=== PATIENT | female | born 1950 | race Caucasian/White ===

== ENCOUNTER 2016-09-09 17:00 | Inpatient (IN) | payer MEDICARE, OTHER ==
[~2016-09-09] VITALS: Ht 167.6 cm; Wt 75.8 kg
--- NOTE | ~2016-09-09 | OR ---
PATIENT'S NAME: TAYLOR MADRID [facility] AGE: 65 Y [address] ROOM: [place] [address] LOCATION: [facility] ADMIT DATE: 10/01/2016 OR/Procedure Report DISCHARGE DATE: FAMILY PHYSICIAN: Charline Fox ATTENDING PHYSICIAN: DEL DE SOUZA SURGEON: Del De Souza MD GREY STOCK RECORDER: 1. Miguel Mccarthy PA-C. 2. Rakesh Cao CST/ARETHA. DATE OF PROCEDURE: 10/01/2016 PREOPERATIVE DIAGNOSIS: Degenerative joint disease, left knee. POSTOPERATIVE DIAGNOSES: 1. Degenerative joint disease, left knee. 2. Chronic left anterior cruciate ligament insufficiency. OPERATION: Left total knee arthroplasty with computer navigation. ANESTHESIA: Spinal anesthesia plus adductor canal block plus periarticular local anesthesia (ropivacaine with epinephrine and Toradol). ESTIMATED BLOOD LOSS: Less than 10 mL. DRAIN: None. SPECIMEN: None. COMPLICATIONS: None. IMPLANT SYSTEM: [employer] Triathlon: 1. Size 4 left posterior stabilized femoral component. 2. Size 3 universal modular tibial baseplate. 3. 11 mm, posterior stabilized, size 3 x3 polyethylene insert. 4. 29 mm oval x3 patella component. INDICATIONS FOR SURGERY: Taylor Madrid is a 65-year-old female who presents with advanced left knee degenerative joint disease and associated severely compromised activities of daily living. The patient has decided to proceed with knee replacement after having been thoroughly counseled regarding the associated risks, benefits, and limitations. We have specifically reviewed the risks and implications of infection, deep venous thrombosis, pulmonary embolism, mortality, neurovascular complications, blood transfusion (and associated potential for disease transmission or transfusion reaction), stiffness, instability, mechanical deterioration of the components (due to wear and or loosening), and the potential need for revision. We have also PATIENT'S NAME: TAYLOR MADRID [facility] AGE: 65 Y [address] ROOM: [place] [address] LOCATION: [facility] ADMIT DATE: 10/01/2016 OR/Procedure Report DISCHARGE DATE: FAMILY PHYSICIAN: Charline Fox ATTENDING PHYSICIAN: DEL DE SOUZA emphasized the importance of active involvement and compliance with post- operative physical therapy as a means of optimizing range of motion and functional recovery. Informed consent has been granted. DESCRIPTION OF PROCEDURE: The patient was positioned supine after administration of anesthesia and prophylactic antibiotics. A well-padded pneumatic tourniquet was placed around the left proximal thigh, and the left lower extremity was prepped and draped with vigilant sterile technique. The patient's name as well as the intended operative side and procedure were confirmed with a verbal time-out involving myself, the circulating nurse, the scrub nurse, and the anesthesiologist. Examination under anesthesia demonstrated no active skin lesion or masses. There was a moderate effusion. There was no erythema. There was no abnormal warmth. Range of motion under anesthesia was from full extension to 140 degrees of flexion. Negative posterior drawer. No varus or valgus laxity. The left lower extremity was elevated and exsanguinated with an Esmarch wrap, and the pneumatic tourniquet was inflated to 300mmHg. The knee was approached through a longitudinal midline incision. A medial parapatellar arthrotomy was performed and the patella was everted. Examination of the joint space demonstrated a moderate amount of benign appearing translucent synovial fluid. There were no loose bodies. There was no synovitis. The anterior cruciate ligament was absent. The posterior cruciate ligament was intact. There was small osteophytes at the inferior and medial margins of the patella. There was generalized grade 2 chondromalacia at the medial tibial plateau and the patella. There was a 5 x 12 mm region of high-grade partial thickness articular cartilage loss at the central aspect of the femoral trochlea. There was a 1 x 3 cm diameter region of full-thickness articular cartilage loss at the anterolateral aspect of the medial femoral condyle. There was 1 x 2 cm diameter region of full thickness articular cartilage loss at the lateral aspect to the lateral femoral condyle and a seperate 1 x2 cm region of full- thickness articular cartilage loss at the lateral aspect to the lateral tibial plateau. There were moderate sized osteophytes at the medial femoral condyle and lateral femoral condyle. There was a small osteophyte at the posterior aspect of the medial tibial plateau. There was a 1-cm diameter full-thickness unstable flap articular cartilage at the medial femoral condyle. The remainder of the articular cartilage at the medial femoral condyle was relatively normal. There was a mild inner perimeter tearing at the medial meniscus. There was extensive inner perimeter tearing at the lateral meniscus. Remnants of the menisci and cruciate ligaments were excised. The [employer] computer navigation femoral tracker was pinned in place at the distal aspect PATIENT'S NAME: TAYLOR MADRID [facility] AGE: 65 Y [address] ROOM: [id number] [place], [place] [address] LOCATION: [facility] ADMIT DATE: 10/01/2016 OR/Procedure Report DISCHARGE DATE: FAMILY PHYSICIAN: Charline Fox ATTENDING PHYSICIAN: DEL DE SOUZA of the femoral trochlea. Absence of motion between the femur and the tracking device was confirmed manually and visually. Femoral osseous landmarks were obtained in order to calibrate the computer navigation system. Landmarks included the center of rotation of the ipsilateral hip, the center-point of the distal femur, the femoral AP axis, 57 points on the medial femoral condyle articular surface, and 57 points on the lateral femoral condyle articular surface. The [employer] computer navigation system was subsequently utilized to position the distal femoral resection block such that the distal femoral resection was performed perfectly perpendicular to the femoral mechanical axis. The distal femoral resection was performed with a [employer] oscillating saw. The [employer] computer navigation tibial tracker was pinned in place at the anterior aspect of the tibial plateau. Absence of motion between the tibia and the tracking device was confirmed manually and visually. Tibial osseous landmarks were obtained in order to calibrate the computer navigation system. Landmarks included the center-point of the tibial plateau, the AP tibial axis, 57 points on the medial tibial plateau articular surface, 57 points on the lateral tibial plateau articular surface, the medial malleolus, and the lateral malleolus. The [employer] computer navigation system was subsequently utilized to position the proximal tibial resection block such that the proximal tibial resection was performed perfectly perpendicular to the tibial mechanical axis. The proximal tibial resection was performed with a [employer] oscillating saw. Perpendicularity of the tibial resection with respect to the tibial shaft axis was reconfirmed by inserting a spacer- block attached to an extramedullary guide brendan. External rotation of the anterior and posterior femoral resections was set parallel to the epicondylar axis and carefully adjusted in order to create a rectangular flexion gap. The box resection was performed with a reciprocating saw. Anterior and posterior chamfer resections were performed with the oscillating saw. Posterior condyle osteophytes were excised with an osteotome. All other osteophytes were excised with a rongeur. Resection of all remnants of the menisci was reconfirmed. Flexion and extension gaps were confirmed to be symmetric and well balanced with a spacer-block technique. The patella resection was performed with an oscillating saw such that the composite thickness of the reconstructed patella was equivalent to the thickness of the mechoopda patella. Patella tracking was confirmed to be optimal. Patella tracking was optimal, and there was no need for a lateral retinacular release. A limited iliotibial band release was necessary in order to equilibrate the extension gap. All trial components were removed and all prepared osseous surfaces were thoroughly irrigated with pulsatile saline lavage and dried prior to cementing PATIENT'S NAME: TAYLOR MADRID [facility] AGE: 65 Y [address] ROOM: [address] [address] LOCATION: [facility] ADMIT DATE: 10/01/2016 OR/Procedure Report DISCHARGE DATE: FAMILY PHYSICIAN: Charline Fox ATTENDING PHYSICIAN: DEL DE SOUZA all three components in a single stage using [employer]plex cement containing pre-mixed tobramycin. All extruded excess cement was removed. The entire joint space was thoroughly inspected and thoroughly irrigated with bacteriostatic pulsatile saline lavage to assure that there was no residual debris of any sort. Final range of motion was from full extension (with no passive hyperextension) 130 degrees of flexion. Patella tracking was reconfirmed to be optimal. There was excellent anteroposterior stability at 90 degrees of flexion. There was 1-mm of medial lift-off to valgus stress in full extension. There was 0- mm of lateral lift-off to varus stress in full extension. The arthrotomy was closed with multiple simple and [id number] interrupted #1 Vicryl. Subcutaneous tissues were thoroughly re-irrigated with bacteriostatic pulsatile saline lavage. Subcutaneous tissues were re- approximated with simple buried interrupted #0 Vicryl sutures. The skin was closed with simple buried interrupted 2-0 Vicryl sutures followed by surgical patrica. The dressing consisted of Xeroform gauze, 4x4 gauze, ABD pads and two 6-inch Matt Wraps. There were no intra-operative complications. It should be noted that the physician's assistant operator played an active, integral role throughout this entire operation. By providing expert retraction, they greatly facilitated and expedited safe and effective exposure of the distal femur, proximal tibia and patella for preparation and implantation of the components. They were also actively involved in the patient's positioning, prepping and draping, as well as wound closure. MD RHONDA CHUNG/felton /[id number] d: 10/01/16 1405 t: 10/03/166, OPERATIVE SUMMARY
--- NOTE | ~2016-09-09 | DS ---
PATIENT'S NAME: VANESA MOMIN [facility] AGE: 65 Y [address] ROOM: [id number] [place], [place] [address] LOCATION: [facility] ADMIT DATE: 10/01/2016 Discharge Summary DISCHARGE DATE: 10/03/2016 FAMILY PHYSICIAN: Charline Fox ATTENDING PHYSICIAN: Cortes Sheppard PRIMARY DIAGNOSIS: Degenerative joint disease of the left knee. SECONDARY DIAGNOSIS: Hypercholesterolemia. PROCEDURE PERFORMED: Left total knee arthroplasty with computer navigation. HISTORY: The patient is a 65-year old female, who presents with advanced left knee degenerative joint disease and associated severely compromised activities of daily living. The patient has decided to proceed with total knee arthroplasty after having been thoroughly counseled regarding the risks, benefits, limitations and alternatives. Please refer to the outpatient clinic notes and admission history and physical for this patient. HOSPITAL COURSE: The patient underwent a left total knee arthroplasty on 10/01/2016 without complications. Spinal anesthesia plus adductor canal block plus periarticular local anesthesia was utilized. The patient received 24 hours of perioperative prophylactic antibiotics and remained hemodynamically stable, neurovascularly intact throughout the entire hospital course. The postoperative prophylactic deep venous thrombosis prophylaxis consisted of Xarelto, early mobilization and pneumatic compression devices. Daily physical therapy for gait training, transfer training range of motion and quadriceps isometric exercises were received. The patient progressed well in physical therapy. On the date of discharge, 10/03/2016, the incision at the knee was healing well and showed no signs of infection. DISCHARGE ACTIVITY: The patient is to bear weight as tolerated with range of motion and quadriceps isometric exercises as instructed. The operative extremity is to be elevated at least 90% of the day. There is to be sterile 4x4 gauze dressings to the incision daily. Dr. Sheppard is to be notified immediately if there is any increased pain, fevers, chills erythema or drainage. DISCHARGE MEDICATIONS: 1. Xarelto 10 mg, take 1 tablet p.o. daily for DVT prevention. 2. Dilaudid 2 mg, take 1 to 2 tablets p.o. every 4 hours as needed for pain. 3. Celebrex 200 mg, take 1 tablet p.o. twice daily as needed. FOLLOWUP: Followup appointment is to be with Dr. Sheppard on October 10, 2016, for initial postoperative evaluation and x-rays at that time. PATIENT'S NAME: VANESA MOMIN [facility] AGE: 65 Y [address] [place] [facility] [place] [place], [place] [address] LOCATION: [facility] ADMIT DATE: 10/01/2016 Discharge Summary DISCHARGE DATE: 10/03/2016 FAMILY PHYSICIAN: Charline Fox ATTENDING PHYSICIAN: Cortes Sheppard HEATHER RICHARDS FOR MD BERNY CHUNG/modl /[id number] d: 10/08/16 0258 t: 10/08/16 1110, DISCHARGE SUMMARY
[2016-09-12] MEDS ORDERED: ZOCOR20 MG PO (09:07)
[2016-09-12] MEDS ORDERED: CALTRATE 600 WI1 TAB PO (09:08)
[2016-09-12] MEDS ORDERED: CENTRUM SILVER1 EAC4 PO (09:09)
[2016-09-12] MEDS ORDERED: ALEVE220 MG PO (09:10)
[2016-10-01] MEDS ORDERED: TYLENOL EXTRA500 MG PO (06:44)
[2016-10-01] MEDS ORDERED: ADVIL PM CAPLE1 EACH PO (06:45)
--- NOTE | 2016-10-01 15:59 | NUR ---
Introduced self/role to patient who attended the preop class. Reports she lives in [place] with . Has walker, cane, elevated toilet seat. Has walk in shower. No discharge needs/concerns voiced. Reviewed and encouraged use of IS. Has foot pumps on bilaterally. Will follow and assist as needs identified.
--- NOTE | 2016-10-01 16:52 | NUR ---
Patient arrived on 3N at 1130. Alert and oriented X3. V/S Stable. CSMs WNL. Patient up to chair and voiding well in commode. Patient transfers well with 1 assist. Dilaudid given X 2 at 1500 and 1640. Dressing clean, dry, & intact.
--- NOTE | 2016-10-01 16:56 | NUR ---
Patient arrived on 3N at 1130. V/S stable. CSMs WNL. Transfers well with 1 assist and walker. Up to commode and voiding well. Dressing clean, dry, and intact. Alert and oriented X 3. Dilaudid given at 1500 and 1640. Patient rating pain at 2.
--- NOTE | 2016-10-01 18:49 | NUR ---
I reviewed and approve of charting by Chidi Burgess, SN
--- NOTE | 2016-10-02 03:16 | NUR ---
Pt A&Ox3, VSS on RA. Dressing CDI to left knee, ice in place. CSM intact. Pain well controlled with scheduled tylenol and PRN diluadid PO, see EMAR, rated pain 1-4 throughout shift. Up with 1A to chair, BSC. Voiding and taking PO sufficiently.
--- NOTE | 2016-10-02 11:20 | NUR ---
Introduced self/role to patient, lives in [place] with her Alex. She denied any barriers to discharge or at home. Will have assistance and all the DME she thinks she needs. Added my name to her marker board, patient planning discharge tomorrow.
--- NOTE | 2016-10-02 16:49 | NUR ---
Patient alert and oriented X 3. Dressing CDI to left knee. CSM intact. Pain well controlled with scheduled Tylenol and PRN Dilaudid PO. Last Dilaudid given at 1640. Patient ambulates well with 1A. Voiding and taking PO sufficiently. Patient plans to discharge tomorrow.
--- NOTE | 2016-10-02 18:39 | NUR ---
I reviewed and approve of charting by Chidi Robertson RN
--- NOTE | 2016-10-03 03:16 | NUR ---
Significant Event: A&Ox3, VSS on room air. Transfers with SBA, walker/GB. Dilaudid and tylenol for pain control. Dressing C/D/I. CSM WNL. Denies needs. Patient rested well. D/C to home today. Follow up:
--- NOTE | 2016-10-03 09:56 | NUR ---
Significant Event: Ambulates with SBA and walker. Dressing changed, patrica intact. Ez wrap ice at all times. Dilaudid 2mg last at 0923. BM this am. CSM WNL. Plans to dismiss home this afternoon. Follow up:
[2016-10-03] MEDS ORDERED: COLACE100 MG PO (12:16)
[2016-10-03] MEDS ORDERED: NEURONTIN300 MG PO (12:16)
[2016-10-03] MEDS ORDERED: MIRALAX17 GM PO (12:17)
[2016-10-03] MEDS ORDERED: XARELTO10 MG PO (12:18)
[2016-10-03] MEDS ORDERED: DILAUDID 2MG(HYD2 MG PO (12:19)
[2016-10-03] MEDS ORDERED: CELEBREX200 MG PO (12:20)
--- NOTE | 2016-10-03 15:55 | NUR ---
Pt's pain well controlled with the oral pain meds, Scripts sent with patient and family. CMS's are WNL, some minimal edema noted, Pt voiding QS and drinking well. Patient and family all understand discharge instructions. Pt did experience some difficulty with the meds and I reinforced multiple times. Pt dismissed off unit per w/c and nursing staff. All belongings and ice bags sent.
== END 2016-10-03 14:04 | disposition disaster alternative care site (69) | DRG 470 ==
LOC: G3N 10-01 06:09
PROVIDERS: ADMIT Orthopaedic Surgery
DX: M17.12 Unilateral primary osteoarthritis, left knee (principal); E78.00 Pure hypercholesterolemia, unspecified
CPT/HCPCS: C1713; C1776; J0690; J1100; J1885; J2001; J2250; J2795; J7120

== ENCOUNTER → 2016-09-12 | Outpatient (CLI) | payer MEDICARE, OTHER ==
[~2016-09-12] MED LIST: ADVIL PM CAPLE1 EACH PO; ALEVE220 MG PO; CALTRATE 600 WI1 TAB PO; CELEBREX200 MG PO; CENTRUM SILVER1 EAC4 PO; COLACE100 MG PO; DILAUDID 2MG(HYD2 MG PO; MIRALAX17 GM PO; NEURONTIN300 MG PO; TYLENOL EXTRA500 MG PO; XARELTO10 MG PO; ZOCOR20 MG PO
== END | disposition disaster alternative care site (69) ==
LOC: GNJRC 10:20
DX: Z01.812 Encounter for preprocedural laboratory examination (principal); M17.12 Unilateral primary osteoarthritis, left knee

== ENCOUNTER → 2016-12-18 | Outpatient (CLI) | payer MEDICARE, OTHER | LOC: GBCOE 10:16 | DX: Z12.31 Encounter for screening mammogram for malignant neoplasm of breast (principal); R92.1 Mammographic calcification found on diagnostic imaging of breast | CPT/HCPCS: G0202 ==